=== PATIENT | female | born 1985 | race Caucasian/White ===

== ENCOUNTER → 2016-07-07 | Outpatient (CLI) | payer BC ==
[~2016-07-07] MED LIST: DOCU-94 PO; PRENTAB26 PO
[2016-07-07 17:41] LABS: HEMATOCRIT 34.7 % (37-47)
[2016-07-07 18:29] LABS: URINE APPEARANCE CLEAR (CLEAR); URINE BILIRUBIN NEG (NEG); URINE COLOR YELLOW; URINE EPITHELIAL CELL AUTO >30 /lpf (0-5); URINE NITRITE NEG (NEG); URINE PH 7.5 (4.5-7.5); URINE SPECIFIC GRAVITY 1.018 (1.000-1.030); UROBILINOGEN NEG (NEG)
[2016-07-07 18:31] LABS: MANUAL MICROSCOPIC REQUIRED? NO; REVIEW REQ? YES
[2016-07-07 18:37] LABS: GTGD 50 Grams
== END | disposition home or self-care (01) ==
LOC: C.LAB1850 16:15
PROVIDERS: ATTEND Obstetrics & Gynecology
DX: Z34.03 Encounter for supervision of normal first pregnancy, third trimester (principal)

== ENCOUNTER → 2016-09-01 | Outpatient (CLI) | payer BC | END | disposition home or self-care (01) | LOC: C.LABSPEC 17:34 | PROVIDERS: ATTEND Obstetrics & Gynecology | DX: Z34.03 Encounter for supervision of normal first pregnancy, third trimester (principal) ==

== ENCOUNTER 2016-09-17 01:28 | Inpatient (IN) | payer BC ==
[~2016-09-17] VITALS: Ht 157.5 cm; Wt 82.3 kg
[2016-09-17] MEDS ORDERED: PRENTAB26 PO (02:07)
[2016-09-17] MEDS ORDERED: DOCU-94 PO (02:07)
[2016-09-17 02:08] VITALS: Ht 157.5 cm; Wt 82.3 kg
[2016-09-17 02:35] LABS: HEMATOCRIT 36.7 % (37-47); MEAN CELL VOLUME 84.6 fL (80-100); MEAN CORPUSCULAR HGB CONC 35.4 g/dl (32-36); MEAN PLATELET VOLUME 11.5 fL (7.4-10.4); PLATELET COUNT 179 K/uL (130-400); RED BLOOD COUNT 4.34 M/uL (4.2-5.4)
[2016-09-17] MEDS ORDERED: NURSING VERBAL MED ORDER ONE (03:30)
[2016-09-17] MEDS ORDERED: LACTATED RINGER'S 1000ML 1,000 ML IV PRN (04:00)
[2016-09-17] MEDS ORDERED: EpHEDrine SULFATE INJ 50 MG/ML AMP ONE (04:46)
[2016-09-17] MEDS ORDERED: BUPIVACAINE 0.25% 30 ML VIAL ONE (04:46)
[2016-09-17] MEDS ORDERED: FENTANYL CITRATE INJ 50 MCG/1 ML 2 ML VIAL ONE (04:47)
[2016-09-17] MEDS ORDERED: FENTANYL 2MCG/ML ROPIV 1.25MG/ML 100ML BAG EPI ONE (04:47)
[2016-09-17] MEDS: LACTATED RINGER'S 1000ML 1,000 ML IV SCH ×2 (05:44→10:15)
[2016-09-17] MEDS ORDERED: PHENYLEPHRINE 100MCG/ML 5ML SYR ONE (05:45)
[2016-09-17] MEDS ORDERED: NALOXONE HCL INJ 1 MG in SODIUM CHLORIDE 0.9% 1000ML 1,000 ML IV PRN (05:52)
[2016-09-17] MEDS ORDERED: LACTATED RINGER'S 1000ML 500 ML IV PRN ×2 (05:52→08:36)
[2016-09-17] MEDS ORDERED: DiphenhydrAMINE HCL 50 MG/ML VIAL IV PRN (06:00)
[2016-09-17] MEDS ORDERED: EpHEDrine SULFATE INJ 50 MG/ML AMP IV PRN (06:00)
[2016-09-17] MEDS ORDERED: ONDANSETRON INJ 2 MG/ML 2 ML VIAL IV PRN (06:00)
[2016-09-17] MEDS ORDERED: NALBUPHINE HCL INJ 10 MG/ML AMP IV PRN (06:00)
[2016-09-17] MEDS ORDERED: NALOXONE HCL INJ 0.4 MG/1 ML VIAL/CARP IV PRN (06:00)
[2016-09-17] MEDS: PHENYLEPHRINE 100MCG/ML 5ML SYR IV PRN ×2 (06:08→06:17)
[2016-09-17] MEDS: FENTANYL 2MCG/ML ROPIV 1.25MG/ML 100ML BAG EPI PRN ×3 (06:12→13:34)
[2016-09-17] MEDS ORDERED: OXYTOCIN 30 UNITS/500ML NSS IV PRN ×2 (08:45→17:15)
--- NOTE | 2016-09-17 08:51 | Medical Student: [facility] ---
Med Student History & Physical Date of Service Sep 17, 2016. Chief Complaint "My water broke" History of Present Illness Source: patient, family, clinic records, hospital records This is a 31 yo at 38 and 4/7 weeks gestation who presents with rupture of membranes and initiation of labor at about 23:30 last night. Her has been uncomplicated and she has no acute complaints at the moment. She received epidural anesthesia at approximately 5 am today. She is still feeling frequent movement. She denies any bleeding. The fluid when her water broke was a small gush of clear fluid with continue but slowing leakage today. She says that she is still having contractions, but cannot not feel them much since the epidural. Labs: Blood type: O+, negative antibody screen Rubella: Immune VDRL/RPR: Non-reative HBsAg: Negative HIV: Negative Chlamydia: Negative Gonorrhea: Negative Diabetes: Negative 2nd trimester serum screen: Negative GBS: Negative OB History G1: Current . 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 Her last menstrual period was per clinic notes. Prior to her periods occurred regularly at one month intervals and typically lasted 3 days with moderate flow. She denies any history of STDs, and has never had an abnormal pap smear. Her last pap smear was at her OB intake visit 02/11, and was negative. Past Medical History No significant past medical history. Only medication is vitamins. Past Surgical History No past surgeries. 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) Allergies Coded Allergies: No Known Allergies (Unverified , 09/17/16) Home Medications Docusate Sodium (Colace), 1 CAP PO DAILY Multivit/Min/Iron/Fol Ac/Pren ( Vitamin), 1 TAB PO DAILY Review of Systems Eyes: No worsening of vision Physical Exam General Appearance: WD/WN, no apparent distress Respiratory/Chest: lungs clear, normal breath sounds Cardiovascular: regular rate, rhythm, no murmur Abdomen / GI: non tender, soft, + pertinent finding (gravid) Genitourinary - Female: + pertinent finding (cervix dilated 5 cm, 100% effaced , station -1) Extremities: no calf tenderness, no pedal edema Neurologic/Psych: alert, oriented x 3 Skin: normal color Monitoring External Monitor: Baseline 150, moderate variability, accelerations present, no decels. reactive tracing. Tocodynamometer: contractions 6 minutes apart Laboratory Results 09/17/16 02:27 Test 09/17/16 02:27 Red Blood Count 4.34 M/uL (4.2-5.4) Mean Corpuscular Volume 84.6 fL (80-100) Mean Corpuscular Hemoglobin 30.0 pg (25-34) Mean Corpuscular Hemoglobin Concent 35.4 g/dl (32-36) RDW Standard Deviation 39.2 fL (36.4-46.3) RDW Coefficient of Variation 12.7 % (11.5-14.5) Mean Platelet Volume 11.5 fL (7.4-10.4) Assessment and Plan This is a 31 yo at 38 and 4/7 weeks gestation who presents with rupture of membranes and initiation of labor at about 23:30 last night. She is in active phase of stage 1 of labor. positioning is vertex. heart monitoring shows a category I tracing. No complicating factors identified at this time. Patient will be administered IV pitocin because she has only progressed 1 cm since her last check three hours ago. Team will continue to monitor and maternal vital signs and perform regular cervical checks for progression of labor.
[2016-09-17] MEDS ORDERED: OXYTOCIN INJ 10 UNITS/ML VIAL ONE (16:52)
--- NOTE | 2016-09-17 17:12 | Medical Student: [facility] ---
Medical Student Delivery Note PRE-DELIVERY DIAGNOSIS: -31 year old , 38 weeks 4 days GA -Premature rupture of membranes POST-DELIVERY DIAGNOSIS: same PROCEDURE: Spontaneous vaginal delivery and repair of 2nd degree perineal laceration ESTIMATED BLOOD LOSS: 400 mL FINDING: viable male, Apgars 8/8, weight pending DESCRIPTION OF DELIVERY: Patient was administered epidural and progressed to complete labor following initiation of pitocin IV drip at 1 milliunit which was increased by 2 milliunit increments to 15 milliunits at time of delivery. She began to push and spontaneously vaginally delivered a viable male . 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 After the head was delivered, a nuchal cord x 1 was noted. Next, the anterior shoulder was delivered followed by the posterior shoulder. Then the body was delivered. The baby was dried and subsequently placed on mother's abdomen. A spontaneous cry was heard. The cord was doubly clamped and cut for a possible cord gas. Cord blood was then collected for donation. The placenta was then delivered spontaneously. It was intact and 2 umbilical arteries and 1 umbilical vein was observed. 10 units Oxytocin was given to the patient IM. Upon palpation the uterus was firm. A manual curettage was performed to check for retained clots or debris in the vagina and uterus. Next, the perineum, vagina and cervix were inspected for any tears. A 2nd degree perineal laceration was observed. This laceration was repaired with 3-0 Vicryl. Mother and baby tolerated the procedure well and hemostasis was achieved. Lastly, sponges, instruments and needles were counted and correct at the end of the delivery.
[2016-09-17] MEDS ORDERED: ACETAMINOPHEN 325 MG TAB PO PRN (17:15)
[2016-09-17] MEDS ORDERED: SUPERCREAM 0.870 % 15GM JAR EXT PRN (17:15)
[2016-09-17] MEDS ORDERED: LANOLIN OINT EXT PRN ×2 (17:15)
[2016-09-17] MEDS ORDERED: ACETAMINOPHEN/CODEINE 300/30MG TAB PO PRN ×2 (17:15)
[2016-09-17] MEDS ORDERED: HYDROCORTISONE ACETATE 25 MG SUPP PR PRN (17:15)
[2016-09-17] MEDS ORDERED: DIPHTHERIA/TETANUS/PERTUSSIS 0.5 ML SYR/VIAL IM. ONE (17:15)
[2016-09-17] MEDS ORDERED: OXYTOCIN INJ 10 UNITS/ML VIAL IM ONE (17:15)
[2016-09-17] MEDS ORDERED: OXYTOCIN INJ 20 UNITS in LACTATED RINGER'S 1000ML 1,000 ML IV SCH (17:30)
--- NOTE | 2016-09-17 17:35 | DELIVERY SUMMARY ---
DATE OF OPERATION: 09/17/2016 The patient dilated to complete and pushed to deliver a viable male , Apgars 8 and 8 via from the ROP position over a second degree perineal laceration. Mouth and nose bulb suctioned at the perineum. Loose nuchal cord x1 reduced. Shoulders and body delivered with ease. The was vigorous and crying at . Cord clamped and cut. to maternal abdomen. Cord blood obtained, followed by collection of cord blood for donation. Laceration repaired in the usual fashion using 3-0 Vicryl in multiple layers. Cervix and sulci intact. Placenta was delivered spontaneously and intact 3-vessel cord with evidence of meconium staining. Placenta sent for evaluation. Estimated blood loss approximately 400 mL. Bladder drained under sterile conditions for clear yellow urine. This was approximately 250 mL. Due to the IV site not working effectively at first, 10 milliunits of IM Pitocin was administered to allow for uterine tone and hemostasis was deemed adequate. Mother and baby were stable in recovery. I attest to the content of the Intraoperative Record and any orders documented therein. Any exceptio ns are noted below.
--- NOTE | 2016-09-17 17:38 | Anesthesia Procedure Note ---
Anesthesia Epidural Removal Nt Date & Time Sep 17, 2016 at 17:37 Vital Signs Pain Intensity: 0.0 Notes Mental Status: alert / awake / arousable, participated in evaluation Nausea / Vomiting: adequately controlled Pain: adequately controlled Airway Patency, RR, SpO2: stable & adequate BP & HR: stable & adequate Hydration State: stable & adequate Neuraxial Anesthesia: was administered, sensory block is resolving Anesthetic Complications: no major complications apparent, pt satisfied with anesthetic care Epidural: removed without complications, with tip intact
[2016-09-17 19:15] VITALS: BP 108/65; PULSE 123; TEMP 36.6
[2016-09-17] MEDS: DOCUSATE SODIUM 100 MG CAP PO SCH (20:00)
[2016-09-17] MEDS: IBUPROFEN 600 MG TAB PO PRN (21:10)
[2016-09-17 23:00] VITALS: BP 100/59; PULSE 108; TEMP 36.6
[2016-09-18 04:40] VITALS: BP 111/68; PULSE 100; TEMP 36.6
--- NOTE | 2016-09-18 06:33 | Medical Student: [facility] ---
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 Subjective conversation w/ patient, physical exam, chart review, lab review Ambulation: ambulating normally (in room) Voiding: no voiding problems Passing Gas: No Diet Tolerance: Regular Diet (wasn't able to eat much yesterday) Lochia: Small Feeding Type: Breast Feeding (baby latched well beginning this morning) Pain: mild pain in vaginal/perineal region. controlled with oral pain meds. Review of Systems Respiratory: No shortness of breath Cardiac: No chest pain no leg pain, redness, dizziness, or lightheadedness Objective Vital Signs Date Time Temp Pulse Resp B/P Pulse Ox O2 Delivery O2 Flow Rate FiO2 09/18/16 04:40 36.6 100 16 111/68 09/17/16 23:00 36.6 108 16 100/59 09/17/16 23:00 Room Air 09/17/16 19:15 36.6 123 18 108/65 Physical Exam General Appearance: WELL-APPEARING, NO APPARENT DISTRESS Respiratory/Chest: lungs clear, normal breath sounds Cardiovascular: regular rate, rhythm, no murmur Abdomen: non tender, soft Fundus: Firm, Non-Tender, Relation to Umbilicus (1 cm below) Extremities: non-tender, no pedal edema Assessment and Plan Post- Day Number: 1 Continue Routine Care: Vitals stable. Blood type O+ so no need for rhogam. GBS negative. Rubella immune. Doing well clinically, will continue to encourage ambulation. Pain well controlled with oral pain medications, and tolerating PO diet and fluids. Continue routine care.
[2016-09-18 07:50] VITALS: BP 111/75; PULSE 108; TEMP 36.5
--- NOTE | 2016-09-18 08:19 | Progress Note ---
Subjective Sep 18, 2016. Subjective conversation w/ patient, physical exam Ambulation: ambulating normally Voiding: no voiding problems Diet Tolerance: Regular Diet Lochia: Small Feeding Type: Breast Feeding Pain: no pain issues Objective Vital Signs Date Time Temp Pulse Resp B/P Pulse Ox O2 Delivery O2 Flow Rate FiO2 09/18/16 04:40 36.6 100 16 111/68 09/17/16 23:00 36.6 108 16 100/59 09/17/16 23:00 Room Air 09/17/16 19:15 36.6 123 18 108/65 Physical Exam General Appearance: WELL-APPEARING, WD/WN, NO APPARENT DISTRESS Respiratory/Chest: lungs clear Cardiovascular: regular rate, rhythm Abdomen: non tender, soft Fundus: Firm, Relation to Umbilicus (1 down) Extremities: non-tender Assessment and Plan Post- Day#: 1 Continue Routine Care: stable, routine care.
[2016-09-18] MEDS: DOCUSATE SODIUM 100 MG CAP PO SCH ×2 (08:29→20:15)
[2016-09-18] MEDS: IBUPROFEN 600 MG TAB PO PRN ×3 (08:29→20:15)
[2016-09-18] MEDS: BENZOCAINE 20% AER SPR 82.5 GM CAN EXT PRN (09:36)
[2016-09-18 12:10] VITALS: BP 121/73; PULSE 112; TEMP 36.7
[2016-09-18] MEDS ORDERED: NURSING VERBAL MED ORDER ONE (14:30)
[2016-09-18 15:30] VITALS: BP 115/66; PULSE 102; TEMP 37.1; O2SAT 95
[2016-09-18 20:20] VITALS: BP 121/77; PULSE 116; TEMP 36.7; O2SAT 98
[2016-09-18 23:30] VITALS: BP 122/68; PULSE 105; TEMP 36.5; O2SAT 98
--- NOTE | 2016-09-19 06:37 | Medical Student: [facility] ---
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 Subjective conversation w/ patient, physical exam, chart review, lab review Ambulation: ambulating normally (in room) Voiding: no voiding problems Passing Gas: Yes Diet Tolerance: Regular Diet Lochia: Small Feeding Type: Breast Feeding Pain: controlled with oral pain meds Review of Systems Respiratory: No shortness of breath Cardiac: No chest pain Objective Vital Signs Date Time Temp Pulse Resp B/P Pulse Ox O2 Delivery O2 Flow Rate FiO2 09/18/16 23:30 36.5 105 16 122/68 98 Room Air 09/18/16 23:30 98 Room Air 09/18/16 20:20 36.7 116 20 121/77 98 Room Air 09/18/16 16:00 Room Air 09/18/16 15:30 37.1 102 16 115/66 95 Room Air 09/18/16 12:10 36.7 112 16 121/73 Room Air 09/18/16 07:50 Room Air 09/18/16 07:50 36.5 108 18 111/75 Room Air Physical Exam General Appearance: WELL-APPEARING, NO APPARENT DISTRESS Respiratory/Chest: lungs clear, normal breath sounds Cardiovascular: no murmur, + tachycardia Abdomen: normal bowel sounds, non tender, soft Fundus: Firm, Non-Tender, Relation to Umbilicus (2 cm below umbilicus. More anterior than expected) Extremities: non-tender, no pedal edema Assessment and Plan Post- Day Number: 2 Continue Routine Care: Vitals stable. Blood type O+ so no need for rhogam. GBS negative. Rubella immune. Doing well clinically, will continue to encourage ambulation. Pain well controlled with oral pain medications, and tolerating PO diet and fluids. Discharge to home today.
--- NOTE | 2016-09-19 06:57 | Progress Note ---
Subjective Sep 19, 2016. Subjective conversation w/ patient, physical exam Ambulation: ambulating normally Voiding: no voiding problems Passing Gas: Yes Diet Tolerance: Regular Diet Lochia: Small Feeding Type: Breast Feeding Review of Systems Constitutional: No chills, No fever, No sweats Respiratory: No cough, No shortness of breath Cardiac: No chest pain, No claudication Objective Vital Signs Date Time Temp Pulse Resp B/P Pulse Ox O2 Delivery O2 Flow Rate FiO2 09/18/16 23:30 36.5 105 16 122/68 98 Room Air 09/18/16 23:30 98 Room Air 09/18/16 20:20 36.7 116 20 121/77 98 Room Air 09/18/16 16:00 Room Air 09/18/16 15:30 37.1 102 16 115/66 95 Room Air 09/18/16 12:10 36.7 112 16 121/73 Room Air 09/18/16 07:50 Room Air 09/18/16 07:50 36.5 108 18 111/75 Room Air Physical Exam General Appearance: WELL-APPEARING, NO APPARENT DISTRESS Respiratory/Chest: lungs clear, no accessory muscle use Cardiovascular: regular rate, rhythm, no murmur Abdomen: non tender, soft Fundus: Firm, Non-Tender, Relation to Umbilicus (1 cm below) Extremities: non-tender, no calf tenderness Assessment and Plan Post- Day#: 2 Continue Routine Care: s/p day 2 Vitals reviewed and wnl Blood: O+, GBS-, Rubella immune Patient doing wellk clinically Encourage , encourage ambulation, and monitor lochia Patient counselled on discharge instructions PATIENT DISCHARGED TODAY
--- NOTE | 2016-09-19 06:58 | Discharge Instructions ---
Discharge Instructions Date of Service Sep 19, 2016. Admission Reason for Admission: Check Rupture Discharge Discharge Diagnosis / Problem: Spontaneous Vaginal Delivery Discharge Goals Goal(s): Routine recovery after delivery Medications Continue Dispensed Medications: supercream, dermaplast, tucks, lansinoh Activity Recommendations Activity Limitations: per Instructions/Follow-up section . Instructions / Follow-Up Instructions / Follow-Up ACTIVITY RECOMMENDATIONS: * Gradual return to full activity over the next 2-3 weeks. * No lifting - nothing heavier than baby over the next 2-3 weeks. * Do not engage in vigorous exercise, sexual activity or sports until cleared by your physician. * Do not drive or operate any motorized equipment until cleared by your physician. * You may shower/bathe daily. MEDICATIONS: For discomfort or pain, you may use Acetaminophen (Tylenol), Ibuprofen (Advil), or Naproxen (Aleve) following the package directions. For constipation you may use Colace following the package directions. BREAST CARE: If you are not breast feeding: * Wear a supportive bra 24 hours a day for one to two weeks. * Avoid stimulating your breasts and nipples as much as possible during the first few weeks after delivery. * When taking a shower, have the warm water hit your back, not breasts. * When your breasts feel full, apply ice packs. Usually three to four times a day helps ease the discomfort. * Take a mild pain medication (Tylenol / Motrin) when you are uncomfortable. If breast feeding: * Use breast milk to lubricate nipples. Lansinoh cream may be used for sore nipples. You do not need to remove cream prior to breast feeding. If using a different brand of cream, check the label for directions regarding removal of cream prior to nursing. * Wear a supportive bra. * If having problems with breasts or breast feeding, call a salesforce consultant or your health care provider. EPISIOTOMY CARE: After delivery, if you have an episiotomy (stitches), the following steps will ease discomfort and aid healing. * For the first 24 hours after delivery, place ice packs next to your episiotomy to help reduce swelling. * After the first 24 hour-period, sitz baths, either portable or in the tub, are suggested. A shower with a shower arm sprayed over the episiotomy may be comforting. * Vika care should be done after each voiding and bowel movement. Squirt warm water from a plastic bottle over the perineum (region of the body between the anus and urinary opening) and pat dry. * Use Dermoplast to ease discomfort. Shake container. [place] directly over the episiotomy. Place a Tucks on a clean sanitary pad next to your episiotomy. SPECIAL CARE INSTRUCTIONS: When you are discharged from the hospital, it is important for you to follow the instructions listed below: * During the first week at home, you should be able to care for yourself and your baby. In addition, the usual light household activities are encouraged. * Limit your activities to the way you feel. Do not try to clean the house or move furniture. Be sensible. * If you actively engage in sports and have done so up until the time of your delivery, you may resume these activities as soon as you feel able. This may take up to one month or even longer. Use good judgment. * Continue to take your vitamins for at least six weeks after the of your baby. * Your diet need not be limited unless you were on a special diet before your delivery. Breast-feeding mothers need around 2500 calories per day and at least 64-80 ounces of fluid per day (8 to 10 glasses). * You should eat foods from the four major food groups. Crash diets or fad diets are to be avoided. Eating lean meats, fresh fruits and vegetables, low-fat dairy products, high fiber foods and a regular exercise program, will help you get back to your pre- weight without putting your health at risk. * Constipation is sometimes a problem after delivery. Take a mild laxative as needed. If breast feeding, Milk of Magnesia is acceptable to use. You may use a suppository or Fleets enema if no episiotomy. * A daily shower or tub bath is suggested. Be sure to thoroughly and gently dry the perineum. * A bloody vaginal discharge will usually continue until around four weeks post . A small amount of bleeding may continue for as long as six weeks. Vaginal discharge changes from the bright red bleeding after delivery to pink then brownish and finally yellowish-pink before becoming white and disappearing. * Bleeding may increase with activity. Your first period may come in 4-8 weeks. If you are breast feeding, your period may be delayed even longer. * [place] (sex) can begin whenever both you and your partner feel comfortable and do not have any form of genital infection. It is recommended that you wait at least six weeks for internal and external healing to occur. If you have questions, please talk to your health care practitioner. A condom should be used to prevent infection and . * Foreplay, gentle intercourse and lubrication is very important the first several times to prevent pain. A water-based lubricant such as K-Y jelly or Astroglide may be used. * If you have RH negative blood and your baby is RH positive, you will receive RHOGAM by injection prior to discharge. The nurse will give you a card to keep with you that has the date and place that you received RHOGAM after delivery. * During your care, you had a Rubella screen done to check for the presence of rubella antibodies in your blood. If your test was negative, you will receive a Rubella vaccine prior to discharge. This vaccine may cause a fever, soreness at the injection site and flu-like symptoms. If these symptoms persist, notify your health care practitioner. is not advised for one month after a Rubella vaccine. * Verbalizes understanding of car seat law as reviewed with patient nursing. * Car Seat hand-out given and reviewed with patient by nursing. * Shaken baby information reviewed with patient by nursing. Call you doctor if: * Heavy bleeding (saturating several pads an hour) or passing clots the size of your fist. * A fever >101 degrees F (38.3 degrees C) on two occasions four hours apart and /or chills. * Unusual pain in the pelvic or vaginal areas. * "Baby Blues" lasting longer than two weeks. If you have any questions or concerns, call your health care practitioner at . FOLLOW UP VISIT: * Please call the office at to schedule a 6 week examination. It is important you keep this appointment. It is important for you to make arrangements for either yearly or twice yearly check-ups thereafter. Current Hospital Diet Patient's current hospital diet: Regular OB Diet Discharge Diet Recommended Diet: Regular Diet Pending Studies Studies pending at discharge: no Medical Emergencies . Who to Call and When: Medical Emergencies: If at any time you feel your situation is an emergency, please call 911 immediately. . Non-Emergent Contact Non-Emergency issues call your: Primary Care Provider, Tree And Shrub Worker . . "Provider Documentation" section prepared by Hitesh Darby. VTE Core Measure Inpt VTE Proph given/why not?: Treatment not indicated
[2016-09-19 08:30] VITALS: BP 125/69; PULSE 125; TEMP 36.7
[2016-09-19] MEDS: IBUPROFEN 600 MG TAB PO PRN (10:15)
[2016-09-19] MEDS: BENZOCAINE 20% AER SPR 82.5 GM CAN EXT PRN (10:15)
[2016-09-19 12:30] VITALS: BP_DIAS 69; PULSE 125; TEMP 36.7
== END 2016-09-19 12:45 | disposition home or self-care (01) | DRG 775 ==
LOC: C.OPB 01:28 → C.LD 01:29 → C.OPB 02:06 → C.OBG 19:30
PROVIDERS: ADMIT Obstetrics & Gynecology; ATTEND Obstetrics & Gynecology
PROC: 10E0XZZ Delivery of Products of Conception, External Approach (ICD-10-PCS; principal; 2016-09-17)
PROC: 0KQM0ZZ Repair Perineum Muscle, Open Approach (ICD-10-PCS; principal; 2016-09-17)
DX: O70.1 Second degree perineal laceration during delivery (principal); O69.81X0 Labor and delivery complicated by cord around neck, without compression, not applicable or unspecified; O77.0 Labor and delivery complicated by meconium in amniotic fluid; Z37.0 Single live birth; Z3A.38 38 weeks gestation of pregnancy

== ENCOUNTER 2019-10-13 04:01 | Inpatient (IN) ==
--- NOTE | 2019-10-13 04:50 | History & Physical Report ---
Date of Service October 13, 2019 Assessment & Plan (1) Breech presentation: Admit. Labs. EFM/toco. Plan for section delivery. I have discussed informed consent with patient, reviewed RBA. Questions answered. She would like to proceed with . (2) Encounter for supervision of normal in multigravida: History of Present Illness Chief Complaint: gush of fluid Primary Care Provider: NO PCP 34yo @ 40 07/05 with gush of clear fluid at 0230 this morning. She has known breech presentation, underwent attempt at external cephalic version but unsuccessful. uncomplicated. + movement, no vaginal bleeding. Kyle on toco, feeling these sometimes. Allergies Allergy/AdvReac Type Severity Reaction Status Date / Time No Known Allergies Allergy Verified 10/11/19 10:10 Home Medications Home Medications Medication Instructions Recorded Confirmed Type [id number] fumarate-FA 1 tab PO DAILY 07/01/19 10/11/19 History [] Patient History Medical History No significant past medical history (Resolved) Surgical History S/P bunionectomy Family History Grandfather (Maternal) Heart disease Grandmother (Paternal) Breast cancer Grandmother (Maternal) Depression Lung disease Grandfather (Paternal) Lung disease Social History Preferred Language: Moldovan Communication Ability: Effective Deputy Chief Sheriff Required: No Beliefs That Will Affect Care: None marital status: marital status details: Alexis Peres ([phone] Current Living Situation: Family Current Living Situation Comment: Pt lives with and son. 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 Placenta posterior. Constitutional: WD/WN, vitals as above Respiratory: normal respiratory effort, lungs clear to auscultation no r espiratory distress Cardiovascular: Rate/Rhythm: regular rate and regular rhythm Gastrointestinal (Abdomen): Inspection/Auscultation: abdomen normal to inspection Percussion/Palpation: abdomen soft; abdomen nontender Gravid. No s/s chorio or abruption. Skin: no rashes, warm and dry Psychiatric: A+Ox3, euthymic affect Results & Data Vital Signs (Past 12 Hours) Vital Signs Temp Pulse Resp BP 10/13/19 04:24 37.0 C 118 H 16 114/59 L 10/13/19 04:20 118 H 114/59 L Coding Level of Care Code None Diagnoses Breech presentation O32.1XX0 Encounter for supervision of normal in multigravida Z34.80
[2019-10-13] MEDS ORDERED: CITRIC ACID/SODIUM CITRATE 15 ML UDC ONE (04:51)
[2019-10-13] MEDS ORDERED: CEFAZOLIN 2000MG 2,000 MG/15 ML SYR IV ONE (05:00)
[2019-10-13] MEDS ORDERED: LACTATED RINGER'S 1,000 ML IV SCH ×2 (05:00→23:53)
[2019-10-13] MEDS ORDERED: MoRPHine SULFATE PF 1 MG/ML 10 ML AMP/VIAL ONE (05:05)
[2019-10-13 05:12] LABS: Basophils # (auto) 0.01 K/uL (0-0.2); Basophils % (auto) 0.1 %; Eosinophils # (auto) 0.07 K/uL (0-0.5); Eosinophils % (auto) 0.9 %; Hematocrit (blood only) 35.8 % (37-47); Hemoglobin 12.2 g/dL (12.0-16.0); Immature Granulocytes # (auto) 0.05 K/uL (0.00-0.02); Immature Granulocytes % (auto) 0.7 %; Lymphocytes # (auto) 1.57 K/uL (1.2-3.4); Lymphocytes % (auto) 21.2 %; Mean Corpuscular Hemoglobin 29.7 pg (25-34); Mean Corpuscular Volume 87.1 fL (80-100); Mean Platelet Volume 11.4 fL (7.4-10.4); Monocytes # (auto) 0.57 K/uL (0.11-0.59); Monocytes % (auto) 7.7 %; Neutrophils # (auto) 5.15 K/uL (1.4-6.5); Neutrophils % (auto) 69.4 %; Platelet Count 161 K/uL (130-400); RDW Coefficient of Variation 13.3 % (11.5-14.5); RDW Standard Deviation 42.6 fL (36.4-46.3); Red Blood Count 4.11 M/uL (4.2-5.4); White Blood Count 7.42 K/uL (4.8-10.8)
[2019-10-13 05:15] LABS: Mean Corpuscular Hgb Conc 34.1 g/dL (32-36)
--- NOTE | 2019-10-13 05:47 | Anesthesiology Consultation ---
Date of Service October 13, 2019 Assessment & Plan Chart Review Chart Review: Acceptable Risk for Surgery Consults Requested none History Surgery Operation Date: 10/13/19 05:00 Proposed Procedures p Section in LD(Bilateral) - Rosio Woods DO Height/Weight Height: 5 ft 2 in Weight: 82.554 kg Allergies Allergy/AdvReac Type Severity Reaction Status Date / Time No Known Allergies Allergy Verified 10/11/19 10:10 Medications Home Medications Medication Instructions Recorded Confirmed Last Taken [id number] fumarate-FA 1 tab PO DAILY 07/01/19 10/11/19 10/06/19 06:30 [] Active Medications Generic Name Dose Route Start Last Admin Trade Name Freq PRN Reason Stop Dose Admin Lactated Ringer's 1,000 mls @ 999 mls/hr 10/13/19 05:00 10/13/19 04:54 Lr IV 10/13/19 06:00 999 mls/hr .Q1H1M DANK Administration Past Medical History Medical History No significant past medical history (Resolved) Past Family History Family History Grandfather (Maternal) Heart disease Grandmother (Paternal) Breast cancer Grandmother (Maternal) Depression Lung disease Grandfather (Paternal) Lung disease Past Surgical History Surgical History S/P bunionectomy Social History Smoking Status: Never smoker Do You Dip or Chew Tobacco: No Hx Alcohol Use: No Hx Substance Use: No substance use type: does not use Physical Exam Vital Signs Last Vital Signs Temp 37.0 C 10/13/19 04:24 Pulse 112 H 10/13/19 04:55 Resp 16 10/13/19 04:24 BP 118/58 L 10/13/19 04:55 Testing Laboratory Results 10/13/19 05:00
[2019-10-13] MEDS ORDERED: NALBUPHINE HCL INJ 10 MG/ML AMP IV PRN (05:52)
[2019-10-13] MEDS ORDERED: NALOXONE HCL 1 MG in SODIUM CHLORIDE 0.9% 1000ML 1,000 ML IV PRN (05:52)
[2019-10-13] MEDS ORDERED: MoRPHine SULFATE PF 1 MG/ML 10 ML AMP/VIAL INT SPINAL ONE (05:52)
[2019-10-13] MEDS ORDERED: NALOXONE HCL 0.08 MG in SYRINGE 1.8 ML IV PRN (05:52)
[2019-10-13] MEDS ORDERED: LACTATED RINGER'S 500 ML IV PRN (05:52)
[2019-10-13] MEDS ORDERED: MoRPHine SULFATE 2 MG/ML CARP IV PRN (05:52)
[2019-10-13] MEDS ORDERED: DiphenhydrAMINE HCL 50 MG/ML VIAL IV PRN ×2 (05:52→23:52)
[2019-10-13] MEDS ORDERED: METOCLOPRAMIDE HCL 20 MG in SODIUM CHLORIDE 0.9% 50 ML IV PRN (05:52)
[2019-10-13] MEDS ORDERED: ONDANSETRON INJ 2 MG/ML 2 ML VIAL IV PRN ×2 (05:52→23:52)
[2019-10-13] MEDS ORDERED: MEPERIDINE HCL 25 MG/ML CARP/VIAL IV PRN (05:52)
[2019-10-13] MEDS ORDERED: HYDROmorphone INJ 0.5 MG/0.5 ML SYR IV PRN (05:52)
[2019-10-13] MEDS ORDERED: ePHEDrine sulfate 50 MG/ML AMP IV PRN (05:52)
[2019-10-13] MEDS ORDERED: PROMETHAZINE HCL 25 MG in SODIUM CHLORIDE 0.9% 50 ML IV PRN ×2 (05:52→23:52)
[2019-10-13] MEDS ORDERED: NALOXONE HCL 0.4 MG/1 ML VIAL/CARP IV PRN (05:52)
[2019-10-13] MEDS ORDERED: KETOROLAC 30 MG/ML VIAL IV PRN ×2 (05:52→23:52)
[2019-10-13] MEDS ORDERED: SODIUM CHLORIDE 0.9% 1000ML 1,000 ML IV SCH (06:00)
[2019-10-13] MEDS ORDERED: NO NARCOTICS OR SEDATIVES SCH (06:00)
[2019-10-13] MEDS ORDERED: CITRIC ACID/SODIUM CITRATE 15 ML UDC PO SCH (06:00)
[2019-10-13] MEDS ORDERED: ePHEDrine sulfate 50 MG/ML AMP ONE (06:10)
[2019-10-13] MEDS ORDERED: PHENYLEPHRINE 100MCG/ML 5ML SYR ONE (06:10)
[2019-10-13] MEDS ORDERED: OXYTOCIN 10 UNITS/ML VIAL ONE (06:10)
[2019-10-13] MEDS ORDERED: PHENYLEPHRINE HCL 10 MG/ML VIAL ONE (06:10)
--- NOTE | 2019-10-13 06:32 | Operative Report ---
PG Post Operative Report Pre & Post Diagnosis Operation Date: 10/13/19 05:00 Pre-Op Diagnosis: BREECH PRESENTATION RUPTURE OF MEMBRANES Post-Op Diagnosis: BREECH PRESENTATION RUPTURE OF MEMBRANES I identified the patient and participated in the time-out.: Yes Procedure Operation Date: 10/13/19 05:00 Actual Procedures p Primary low transverse Section in LD(Bilateral) - Rosio Woods DO Surgeon Rosio Woods DO Service Technician Copier aKyla Dotson RN Estimated Blood Loss 600 Findings Consistent with Post-Op Diagnosis Viable female , Apgars 9/9. Weight 7#2. Specimens Placenta, cord blood, cord gas. Drains miner, clear yellow Anesthesia Type Spinal Complications none Disposition Accompanied Patient To Recovery: Yes Disposition: L&D Indications 34yo @ 40 07/05 with breech presentation, rupture of membranes. Failed external cephalic version. Description of Procedure Patient was consented in her room, risks benefits and alternatives to surgery reviewed. She elected to proceed with the case. Questions were answered. She is given 2 g of Ancef preoperatively. She is taken to the operating room, spinal anesthesia was administered. She is prepared and draped in usual sterile fashion in the supine position position with a leftward tilt. Timeout was confirmed. A Pfannenstiel skin incision was made with the scalpel and carried through to the underlying layer of fascia. This was nicked at midline, this incision was extended bilaterally bluntly. The superior aspect of the fascial incision was grasped with [place] clamps x2, elevated off the underlying rectus abdominis muscles, and dissected bluntly. In a similar fashion point, the inferior aspect of the fascia was dissected. The rectus abdominis muscles were midline, the peritoneum was entered bluntly digitally. This incision was extended bluntly. Bladder blade was placed. The bladder flap was created with Metzenbaum scissors. The bladder blade was replaced. A low transverse uterine incision was made with a scalpel. This incision was extended bluntly bilaterally. The infant was delivered from a breech presentation. Buttocks was delivered first, followed by bilateral legs, sweeping midline. The torso was delivered, followed by bilateral arms, sweeping each midline. The head delivered easily. The mouth and nose were suctioned with bulb syringe. Spontaneous cry was heard. Cord was doubly clamped and cut, and the baby was handed off to the waiting post closer. A cord segment was retained for cord gases. Cord blood was obtained. Placenta was delivered spontaneously intact with a three-vessel cord. The uterus was exteriorized, and cleared of all clots and debris. The hysterotomy incision was reapproximated using 0 Vicryl in a running locked stitch. A second layer of the same suture was used to imbricate. The posterior uterus was evaluated and found to be normal. Rqnaqc-yn-wivyk sutures were used to obtain excellent hemostasis. There was a small amount of bleeding at the left apex of the incision, therefore an O'Gramercy stitch was made around the left uterine vasculature. This obtained excellent hemostasis. The uterus was returned to the abdomen. Gutters were cleared of all clots and debris. Excellent hemostasis was observed at the incision site. The fascial incision was reapproximated using 0 Vicryl in a running stitch. The subcutaneous tissue was irrigated. The subcutaneous tissue was reapproximated using 2-0 plain gut in a running stitch. The skin was then reapproximated using 4-0 Vicryl in a running subcuticular stitch. Steri-Strips and a bandage were applied. Sponge, instrument, needle counts were correct x2 at the conclusion of the case. The patient tolerated the procedure well, and will be taken to her room in stable and good condition. I attest to the content of the Intraoperative Record and any orders documented therein. Any exceptions are noted below.
[2019-10-13 07:03] LABS: Base Excess Cord Arterial Bld -2.4 mEq/L (-9-1.8); CO2 Cord Arterial Blood 71 mmHg (39.1-73.5); HCO3 Cord Arterial Blood 27 mmol/L (19.7-28.5); PO2 Cord Arterial Blood 12 mmHg (4.1-31.7); pH Cord Arterial Blood 7.21 (7.1-7.38)
[2019-10-13 07:07] LABS: Base Excess Cord Venous Blood -1.8 mEq/L (-7.7-1.9); Cord Venous Blood HCO3 25 mmol/L (18.4-26.8); Cord Venous Blood PCO2 51 mmHg (30.4-57.2); Cord Venous Blood PO2 24 mmHg (14.1-43.3); Cord Venous Blood pH 7.31 (7.20-7.44); Oxygen Sat Cord Arterial Blood < 60.0 % (<60)
[2019-10-13 07:08] LABS: O2 Saturation Cord Venous Bld < 60.0 % (<68)
--- NOTE | 2019-10-13 07:19 | Anesthesiology Progress Note ---
Date of Service October 13, 2019 Anesthesia Post Procedure Vital Signs Vital Signs: Temp Pulse Resp BP Pulse Ox 10/13/19 07:16 112 H 96/52 L 100 10/13/19 07:11 113 H 100 10/13/19 07:06 109 H 104/51 L 100 10/13/19 07:03 114 H 83 L 10/13/19 07:01 113 H 100 10/13/19 06:56 113 H 120/53 L 100 10/13/19 06:52 113 H 93 10/13/19 06:51 111 H 100 10/13/19 06:46 113 H 100 10/13/19 06:45 113 H 100/46 L 10/13/19 06:44 112 H 88 L 10/13/19 06:41 112 H 100 10/13/19 06:40 111 H 98/66 L 10/13/19 06:36 115 H 130/91 100 10/13/19 04:55 112 H 118/58 L 10/13/19 04:24 37.0 C 118 H 16 114/59 L 10/13/19 04:20 118 H 114/59 L Transfer of Care Handoff Completed per policy Notes Mental Status: alert / awake / arousable Nausea / Vomiting: adequately controlled Pain: adequately controlled Airway Patency, RR, SpO2: stable & adequate BP & HR: stable & adequate Hydration State: stable & adequate Neuraxial Anesthesia: was administered and sensory block is resolving Anesthetic Complications: no major complications apparent
[2019-10-13] MEDS ORDERED: SENNA 8.6 MG TAB PO PRN (07:21)
[2019-10-13] MEDS ORDERED: MAGNESIUM HYDROXIDE SUSP 30 ML UDC PO PRN (07:21)
[2019-10-13] MEDS ORDERED: SUPERCREAM 0.870% 15 GM JAR EXT PRN (07:21)
[2019-10-13] MEDS ORDERED: HYDROCORTISONE ACETATE 25 MG SUPP PR PRN (07:21)
[2019-10-13] MEDS ORDERED: BENZOCAINE 20% AER SPR 82.5 GM CAN EXT PRN (07:30)
[2019-10-13] MEDS ORDERED: DIPHTHERIA/TETANUS/PERTUSSIS 0.5 ML SYR/VIAL IM ONE (07:40)
[2019-10-13] MEDS: FERROUS SULFATE 325 MG TAB PO SCH (09:10)
[2019-10-13] MEDS: DOCUSATE SODIUM 100 MG CAP PO SCH ×2 (09:10→20:06)
[2019-10-13] MEDS: SIMETHICONE 80 MG CHEW PO SCH ×4 (09:10→20:06)
[2019-10-13] MEDS: PRENATAL VITAMIN 1 TAB PO SCH (09:11)
[2019-10-13] MEDS: OXYTOCIN 30 UNITS in LACTATED RINGER'S 1,000 ML IV SCH ×2 (09:25→16:50)
[2019-10-13] MEDS ORDERED: OXYCODONE/ACETAMINOPHEN 5mg/325mg TAB PO PRN (23:52)
[2019-10-13] MEDS ORDERED: DC INTRASPINAL MORPHINE SCH (23:52)
[2019-10-14] MEDS: IBUPROFEN 600 MG TAB PO PRN ×4 (04:48→17:27)
[2019-10-14 06:16] LABS: Basophils # (auto) 0.01 K/uL (0-0.2); Basophils % (auto) 0.1 %; Eosinophils # (auto) 0.03 K/uL (0-0.5); Eosinophils % (auto) 0.3 %; Hemoglobin 10.8 g/dL (12.0-16.0); Immature Granulocytes # (auto) 0.03 K/uL (0.00-0.02); Immature Granulocytes % (auto) 0.3 %; Lymphocytes # (auto) 0.99 K/uL (1.2-3.4); Lymphocytes % (auto) 10.9 %; Mean Corpuscular Hemoglobin 29.4 pg (25-34); Mean Corpuscular Hgb Conc 33.8 g/dL (32-36); Mean Corpuscular Volume 87.2 fL (80-100); Mean Platelet Volume 10.8 fL (7.4-10.4); Monocytes # (auto) 0.71 K/uL (0.11-0.59); Monocytes % (auto) 7.8 %; Neutrophils # (auto) 7.28 K/uL (1.4-6.5); Neutrophils % (auto) 80.6 %; Platelet Count 164 K/uL (130-400); RDW Coefficient of Variation 13.5 % (11.5-14.5); RDW Standard Deviation 43.3 fL (36.4-46.3); Red Blood Count 3.67 M/uL (4.2-5.4); White Blood Count 9.05 K/uL (4.8-10.8)
--- NOTE | 2019-10-14 06:52 | Obstetrical Progress Note ---
Date of Service October 14, 2019 Assessment & Plan (1) Encounter for postoperative care: 34yo S/p LTCS. Doing well. Meeting post operative goals. Routine care Subjective Ambulation: ambulating normally Voiding: no voiding problems Passing Gas:: Yes Diet Tolerance:: regular diet Lochia:: Moderate Feeding Type:: breast feeding Physical Exam Constitutional WD/WN, vitals as above Respiratory normal respiratory effort; no respiratory distress and no labored breathing Gastrointestinal (Abdomen) Inspection/Auscultation: abdomen normal to inspection; abdomen not distended Percussion/Palpation: abdomen soft; abdomen nontender, no guarding and abdomen not rigid Incision healing normally Genitourinary OB Exam Abdomen: + fundal height Fundus: + firm and + relation to umbilicus (Below); not tender and not boggy Results & Data Vital Signs (Past 12 Hours) Vital Signs Temp Pulse Pulse Resp BP Pulse Ox 10/14/19 00:15 36.7 C 105 H 17 99/66 L 98 10/13/19 23:30 16 98 10/13/19 22:16 18 98 10/13/19 21:19 18 96 10/13/19 20:06 18 99 10/13/19 19:18 37.1 C 120 H 120 H 20 96/65 L 98
[2019-10-14] MEDS: SIMETHICONE 80 MG CHEW PO SCH ×4 (08:38→20:40)
[2019-10-14] MEDS: DOCUSATE SODIUM 100 MG CAP PO SCH ×2 (08:38→20:40)
[2019-10-14] MEDS: PRENATAL VITAMIN 1 TAB PO SCH (08:38)
[2019-10-14] MEDS: FERROUS SULFATE 325 MG TAB PO SCH (08:38)
[2019-10-14] MEDS ORDERED: NON-FORMULARY MEDICATION (Pnv133-Ferrous Fumarate-Fa [Prenatal] 1 TAB) PO SCH (09:00)
[2019-10-14] MEDS ORDERED: bisacodyL 5 MG TABEC PO SCH (20:00)
[2019-10-15] MEDS: IBUPROFEN 600 MG TAB PO PRN ×2 (04:08→09:30)
[2019-10-15] MEDS ORDERED: bisacodyL 10 MG SUPP PR PRN (06:40)
[2019-10-15 06:56] LABS: Hematocrit (blood only) 30.3 % (37-47); Hemoglobin 10.1 g/dL (12.0-16.0)
--- NOTE | 2019-10-15 08:13 | Obstetrical Progress Note ---
Date of Service October 15, 2019 Assessment & Plan (1) Encounter for postoperative care: - doing well - desires d/c - instructions/RX given - f/u in 6 weeks for pp care Subjective Ambulation: ambulating normally Voiding: no voiding problems Feeding Type:: breast feeding Physical Exam Constitutional WD/WN, vitals as above Respiratory normal respiratory effort, lungs clear to auscultation Cardiovascular RRR, no murmur, no edema Gastrointestinal (Abdomen) Incision intact, appropriate post-op tenderness Musculoskeletal (-) deep calf tenderness Results & Data Vital Signs (Past 12 Hours) Vital Signs Temp Pulse Resp BP 10/15/19 00:00 97.3 F L 112 H 18 102/60
[2019-10-15] MEDS: FERROUS SULFATE 325 MG TAB PO SCH (09:30)
[2019-10-15] MEDS: SIMETHICONE 80 MG CHEW PO SCH (09:30)
[2019-10-15] MEDS: PRENATAL VITAMIN 1 TAB PO SCH (09:31)
[2019-10-15] MEDS: DOCUSATE SODIUM 100 MG CAP PO SCH (09:31)
--- NOTE | 2019-10-18 12:16 | Discharge Summary ---
Date of Service October 18, 2019 Admission HPI Per Admitting Provider 34yo @ 40 07/05 with gush of clear fluid at 0230 this morning. She has known breech presentation, underwent attempt at external cephalic version but unsuccessful. uncomplicated. + movement, no vaginal bleeding. Kyle on toco, feeling these sometimes. Discharge Data Consultations 10/13/19 04:47 Consult Anesthesiology Stat Procedures Performed Operation Date: 10/13/19 05:00 Actual Procedures p Section in LD(Bilateral) - Rosio Woods DO Hospital Course (1) Breech presentation: Patient presented with ROM, known breech. Underwent section. Routine recovery, discharged home. Followup 6w in office. Please see chart for further details. Coding Level of Care Code None Diagnoses Breech presentation O32.1XX0
== END 2019-10-15 11:55 | disposition home or self-care (01) | DRG 788 ==
LOC: OPB 04:01 → 4S1 04:03 → 4S2 09:15